=== PATIENT | male | born 2000 | race Hispanic/Latino ===

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

== ENCOUNTER 2020-08-03 21:15 | Emergency (ER) | payer BC, SELFPAY ==
--- OUTSIDE RECORDS SUMMARY | 2020-08-03 21:19 | XMS REPORT | Continuity of Care Document ---
:2000 Author Organization [facility] t Address [address] [place] [address] Dr. Hernandez [address] [place] [id number] Care Team Providers Name Role Phone Unavailable Unavailable Unavailable Problems This patient has no known problems. Allergies, Adverse Reactions, Alerts This patient has no known allergies or adverse reactions. Medications This patient has no known medications. Procedures This patient has no known procedures. Results This patient has no known results.
--- NOTE | 2020-08-03 23:38 | EDPHYS ---
Physician Documentation [facility] Name: Lg El Age: 20 yrs Sex: Male : 2000 Arrival Date: 08/03/2020 Time: 21:23 Bed 16 Private MD: ED Physician Varinder Cedeno HPI: 08/03 21:23 This 20 yrs old Male presents to ER via Wheelchair with complaints of Knee jmm Injury. 21:23 The patient presents with an injury, pain. Onset: The symptoms/episode began/occurred jmm acutely, just prior to arrival. Modifying factors: The symptoms are alleviated by remaining still, the symptoms are aggravated by movement, weight bearing. Associated signs and symptoms: Pertinent negatives fever, swelling, tingling, vomiting. The patient has experienced a previous episode. Patient states his knee gave out on him while playing soccer. Denies other injury. . Historical: - Allergies: 21:31 No Known Allergies; ca1 - Home Meds: 21:31 None [Active]; ca1 - PMHx: 21:31 None; ca1 - PSHx: 21:31 ACL surgery; ca1 - Immunization history:: Client reports having NOT received the Covid vaccine. Flu vaccine is not up to date. - Social history:: Smoking status: Patient denies any tobacco usage or history of. ROS: 21:23 Constitutional: Negative for fever, chills, and weight loss, Cardiovascular: Negative jmm for chest pain, palpitations, and edema, Respiratory: Negative for shortness of breath, cough, wheezing, and pleuritic chest pain. 21:23 MS/extremity: Positive for injury or acute deformity. 21:23 All other systems are negative. Exam: 21:23 Constitutional: This is a well developed, well nourished patient who is awake, alert, jmm and in no acute distress. Head/Face: atraumatic. Eyes: EOMI, no conjunctival erythema appreciated ENT: Moist Mucus Membranes Neck: Trachea midline, Supple Chest/axilla: Normal chest wall appearance and motion. Cardiovascular: Regular rate and rhythm. No edema appreciated Respiratory: Normal respirations, no respiratory distress appreciated Abdomen/GI: Non distended, soft Back: Normal ROM Skin: General appearance color normal 21:23 Musculoskeletal/extremity: FROM appreciated to the right knee, anterior knee is TTP, compartments are soft, NVI. 21:23 Skin: Appearance: Color: normal in color. 21:23 Neuro: Orientation: is normal, Mentation: is normal, Memory: is normal. 21:23 Psych: Behavior/mood is pleasant, cooperative. Vital Signs: 21:30 BP 135 / 82; Pulse 104; Resp 16 S; Temp 97.9(TE); Pulse Ox 99% on R/A; Weight 112.49 kg ca1 (R); Height 5 ft. 6 in. (167.64 cm) (R); Pain 7/10; 21:54 BP 148 / 80; Pulse 100; Resp 16; Pulse Ox 98% on R/A; zb 21:30 Body Mass Index 40.03 (112.49 kg, 167.64 cm) ca1 MDM: 22:07 Patient medically screened. [facility] 08/04 00:12 Data reviewed: vital signs, nurses notes. Counseling: I had a detailed discussion with karen the patient and/or guardian regarding: the historical points, exam findings, and any diagnostic results supporting the discharge/admit diagnosis, radiology results, the need for outpatient follow up, to return to the emergency department if symptoms worsen or persist or if there are any questions or concerns that arise at home. 08/03 22:02 Order name: XRAY Knee RIGHT 3 view rr5 08/03 23:37 Order name: Knee Immobilizer; Complete Time: 23:49 [facility] Administered Medications: No medications were administered Disposition: 06:38 Co-signature as Attending Physician, Varinder Cedeno MD. [email or web address] Disposition: 08/03/20 23:37 Discharged to Home. Impression: Internal derangement of knee. - Condition is Stable. - Discharge Instructions: Knee Pain. - Prescriptions for Ibuprofen 800 mg Oral Tablet - take 1 tablet by ORAL route every 8 hours As needed take with food; 30 tablet. - Medication Reconciliation Form, Thank You Letter, Antibiotic Education, Prescription Opioid Use, Work release form form. - Follow up: Edison Mehta MD; When: 2 - 3 days; Reason: Recheck today's complaints, Continuance of care, Re-evaluation by your physician. Signatures: Dispatcher [employer] EDMS Nikolas Solomon PA PA jmm Ballard, Brenda, RN RN Noemí Arora RN RN ca1 Varinder Cedeno MD MD 7 Corrections: (The following items were deleted from the chart) 00:01 08/03 23:37 08/03/2020 23:37 Discharged to Home. Impression: Internal derangement of bb knee. Condition is Stable. Forms are Medication Reconciliation Form, Thank You Letter, Antibiotic Education, Prescription Opioid Use. Follow up: Dr. Edison Mehta; When: 2 - 3 days; Reason: Recheck today's complaints, Continuance of care, Re-evaluation by your physician. karen
--- NOTE | 2020-08-03 23:38 | ER ---
Nurse's Notes [facility] Name: Lg El Age: 20 yrs Sex: Male : 2000 Arrival Date: 08/03/2020 Time: 21:23 Bed 16 Private MD: Diagnosis: Internal derangement of knee Presentation: 08/03 21:30 Chief complaint: Patient states: R knee pain 30 mins [employer]. Was running, stepped unto a ca1 hole and heard R knee pop. Previous injury to R knee reported. Coronavirus screen: Client denies travel out of the [place] in the last 14 days. At this time, the client does not indicate any symptoms associated with coronavirus-19. Ebola Screen: Patient negative for fever greater than or equal to 101.5 degrees Fahrenheit, and additional compatible Ebola Virus Disease symptoms Patient denies exposure to infectious person. Patient denies travel to an Ebola-affected area in the 21 days before illness onset. No symptoms or risks identified at this time. Initial Sepsis Screen: Does the patient meet any 2 criteria? No. Patient's initial sepsis screen is negative. Does the patient have a suspected source of infection? No. Patient's initial sepsis screen is negative. Risk Assessment: Do you want to hurt yourself or someone else? Patient reports no desire to harm self or others. Onset of symptoms was August 03, 2020. 21:30 Method Of Arrival: Wheelchair ca1 21:30 Acuity: ORTIZ 4 ca1 Historical: - Allergies: 21:31 No Known Allergies; ca1 - Home Meds: 21:31 None [Active]; ca1 - PMHx: 21:31 None; ca1 - PSHx: 21:31 ACL surgery; ca1 - Immunization history:: Client reports having NOT received the Covid vaccine. Flu vaccine is not up to date. - Social history:: Smoking status: Patient denies any tobacco usage or history of. Screenin:51 Abuse screen: Denies threats or abuse. Denies injuries from another. Nutritional zb screening: No deficits noted. Tuberculosis screening: No symptoms or risk factors identified. Fall Risk Fall in past 12 months (25 points). No secondary diagnosis (0 pts). No IV (0 pts). Ambulatory Aid- None/Bed Rest/Nurse Assist (0 pts). Gait- Normal/Bed Rest/Wheelchair (0 pts) Mental Status- Oriented to own ability (0 pts). Total Andino Fall Scale indicates Low Risk Score (25-44 pts). Fall prevention measures have been instituted. Side Rails Up X 2 Placed close to Nursing Station Frequent Obs/Assesments occuring Family Present and informed to notify staff if they need to leave bedside As available Patient and Family Educated on Fall Prevention Program and strategies. Assessment: 21:52 General: Appears in no apparent distress. uncomfortable, Behavior is calm, cooperative, zb appropriate for age. Pain: Complains of pain in right knee Pain does not radiate. Pain currently is 7 out of 10 on a pain scale. Quality of pain is described as aching, sharp, tender. Neuro: Level of Consciousness is awake, alert, obeys commands, Oriented to person, place, time, situation. Cardiovascular: Patient's skin is warm and dry. Respiratory: Airway is patent. Derm: Bruising that is green, on right knee. Musculoskeletal: Circulation, motion, and sensation intact. Range of motion: limited in right knee. Injury Description: Bruise sustained to right knee is yellow, was sustained 30-60 minutes ago. Vital Signs: 21:30 BP 135 / 82; Pulse 104; Resp 16 S; Temp 97.9(TE); Pulse Ox 99% on R/A; Weight 112.49 kg ca1 (R); Height 5 ft. 6 in. (167.64 cm) (R); Pain 7/10; 21:54 BP 148 / 80; Pulse 100; Resp 16; Pulse Ox 98% on R/A; zb 21:30 Body Mass Index 40.03 (112.49 kg, 167.64 cm) ca1 ED Course: 21:23 Patient arrived in ED. am4 21:23 Nikolas Solomon PA is PHCP. jmm 21:23 Varinder Cedeno MD is Attending Physician. jmm 21:31 Triage completed. ca1 21:31 Arm band placed on right wrist. ca1 21:39 Shantel Munoz, [place] is Primary Nurse. zb 22:56 XRAY Knee RIGHT 3 view In Process Unspecified. EDMS 23:37 Edison Mehta MD is Referral Physician. jmm 23:49 Patient has correct armband on for positive identification. Pulse ox on. NIBP on. rr5 23:49 No provider procedures requiring assistance completed. Patient did not have IV access rr5 during this emergency room visit. Administered Medications: No medications were administered Outcome: 23:37 Discharge ordered by . karen 23:50 Discharged to home via wheelchair. rr5 23:50 Condition: stable 23:50 Discharge instructions given to patient, family, Instructed on discharge instructions, follow up and referral plans. medication usage, Demonstrated understanding of instructions, follow-up care, medications, Prescriptions given X 1. 08/04 00:01 Patient left the ED. bb Signatures: Dispatcher [employer] EDMS Nikolas Solomon PA PA jmm Ballard, Brenda RN RN bb Ryan Malloy RN RN rr5 Noemí Lamas RN RN Shantel Puente RN RN Ally Silva am4
[2020-08-04 00:47] VITALS: TEMP 97.9
[2020-08-04 00:49] VITALS: BP 148/80; O2SAT 98
--- NOTE | 2020-08-04 10:55 | RAD REPORT ---
EXAM DESCRIPTION: RAD - Knee Right 3 View - 08/03/2020 10:56 pm CLINICAL HISTORY: Right knee pain status post injury FINDINGS: No fracture or dislocation is seen. Small joint effusion If patient has clinical symptoms to suggest an occult fracture, ligamentous or meniscal injury MRI wo uld be recommended
== END 2020-08-04 00:01 | disposition home or self-care (01) ==
LOC: ER 21:15
DX: M23.91 Unspecified internal derangement of right knee (principal); Y93.66 Activity, soccer
CPT/HCPCS: 99283

== ENCOUNTER 2022-01-22 13:12 | Emergency (ER) | payer OTHER ==
--- OUTSIDE RECORDS SUMMARY | 2022-01-22 13:19 | XMS REPORT | Continuity of Care Document ---
:2000 Author Organization [facility] t Address [address] [place] [address] Dr. Hernandez [address] [place] [id number] Care Team Providers Name Role Phone Unavailable Unavailable Unavailable Problems This patient has no known problems. Allergies, Adverse Reactions, Alerts This patient has no known allergies or adverse reactions. Medications This patient has no known medications. Procedures This patient has no known procedures. Results This patient has no known results.
[2022-01-22] MEDS ORDERED: METOCLOPRAMIDE 10 MG/2mL INJ ONE (14:19)
[2022-01-22] MEDS ORDERED: DIPHENHYDRAMINE 50 MG/ML VIAL ONE (14:19)
[2022-01-22] MEDS ORDERED: NA CHLORIDE 0.9% 1,000 ML ONE (14:20)
[2022-01-22] MEDS ORDERED: ACETAMINOPHEN 500 MG TAB ONE (14:20)
--- NOTE | 2022-01-22 14:22 | RAD REPORT ---
EXAM DESCRIPTION: CT - Head Brain Wo Cont - 01/22/2022 2:14 pm CLINICAL HISTORY: headache COMPARISON: No comparisons TECHNIQUE: Axial 5 mm thick images of the head were obtained without IV contrast. All CT scans are performed using dose optimization technique as appropriate and may include automated exposure control or mA/KV adjustment according to patient size. FINDINGS: No intracranial hemorrhage, mass, edema or shift of mid-line structures. No acute infarcti on changes seen. No abnormal extra-axial fluid collections. Ventricles are normal. Mastoid air cells and visualized portions of the paranasal sinuses are clear. No acute bony findings. IMPRESSION: Negative non-contrast CT head examination.
[2022-01-22 14:38] LABS: Urine Blood Negative (Negative); Urine Glucose Trace (Negative); Urine Protein 1+ (Negative); Urine Specific Gravity >=1.030 (1.005-1.030); Urine pH 5.5 (5.0-7.0)
[2022-01-22 14:42] LABS: Absolute Lymphocytes (CBC) 2.8 K/uL (0.7-4.9); Hematocrit 45.3 % (39.6-49.0); MCV 82.3 fL (80-100); MPV 8.4 fL (7.6-11.3); RBC Red Blood Cell Count 5.51 M/uL (4.33-5.43)
[2022-01-22 14:58] LABS: Albumin 4.1 g/dL (3.4-5.0); Magnesium 2.4 mg/dL (1.8-2.4); Potassium 3.6 mmol/L (3.5-5.1)
[2022-01-22 15:22] LABS: SARS-COV-2 RT PCR NEGATIVE (NEGATIVE)
--- NOTE | 2022-01-22 15:24 | EDPHYS ---
Physician Documentation [facility] Name: Lg El Age: 21 yrs Sex: Male : 2000 Arrival Date: 01/22/2022 Time: 13:18 Bed 9 Private MD: ED Physician Jimmy Acosta HPI: 01/22 14:05 This 21 yrs old Male presents to ER via Ambulatory with complaints of sb4 Headache, Back Pain, Neck Pain. 14:05 The patient complains of pain to the forehead. sb4 Historical: - Allergies: 13:53 No Known Allergies; vg1 - Home Meds: 13:53 None [Active]; vg1 - PMHx: 13:53 None; vg1 - PSHx: 13:53 None; vg1 - Immunization history:: Client reports having NOT received the Covid vaccine. - Social history:: Smoking status: Patient denies any tobacco usage or history of. ROS: 15:21 Constitutional: Positive for fever, Negative for poor PO intake, weight loss. sb4 15:21 Eyes: Positive for photophobia, Negative for acute changes, blurry vision. 15:21 ENT: 15:21 Neck: Positive for pain with movement, stiffness. 15:21 All other systems are negative. 15:32 Cardiovascular: Negative for chest pain, palpitations, and edema, Respiratory: Negative sb4 for shortness of breath, cough, wheezing, and pleuritic chest pain, Abdomen/GI: Negative for abdominal pain, nausea, vomiting, diarrhea, and constipation. Exam: 15:21 Constitutional: This is a well developed, well nourished patient who is awake, alert, sb4 and in no acute distress. Head/Face: Normocephalic, atraumatic. Eyes: Pupils equal round and reactive to light, extra-ocular motions intact. Periorbital areas with no swelling, redness, or edema. ENT: Mucous membranes moist. Chest/axilla: Normal chest wall appearance and motion. Nontender with no deformity. No lesions are appreciated. Cardiovascular: Regular rate and rhythm with a normal S1 and S2. Respiratory: Lungs have equal breath sounds bilaterally, clear to auscultation and percussion. No rales, rhonchi or wheezes noted. No increased work of breathing, no retractions or nasal flaring. Abdomen/GI: Soft, non-tender, no distension. Skin: Warm, dry with normal turgor. Normal color with no rashes, no lesions, and no evidence of cellulitis. Neuro: Awake and alert, GCS 15, oriented to person, place, time, and situation. Cranial nerves II-XII grossly intact. Motor strength 5/5 in all extremities. Sensory grossly intact. Cerebellar exam normal. Normal gait. Vital Signs: 13:50 BP 140 / 84; Pulse 86; Resp 16; Temp 99.8(O); Pulse Ox 100% ; Weight 116.12 kg; Height vg1 5 ft. 6 in. (167.64 cm); Pain 6/10; 14:38 BP 132 / 81; Pulse 81; Resp 16; Pulse Ox 100% on R/A; ld1 13:50 Body Mass Index 41.32 (116.12 kg, 167.64 cm) vg1 MDM: 13:55 Patient medically screened. sb4 15:21 Data reviewed: vital signs, nurses notes, lab test result(s), and as a result, I will sb4 discharge patient. 01/22 14:04 Order name: CBC with Diff; Complete Time: 14:44 sb4 01/22 14:04 Order name: CMP; Complete Time: 15:07 sb4 01/22 14:04 Order name: COVID-19/FLU A+B; Complete Time: 15:31 sb4 01/22 14:04 Order name: Strep; Complete Time: 14:54 sb4 01/22 14:04 Order name: Frio Screen Profile; Complete Time: 15:31 sb4 01/22 14:04 Order name: Magnesium; Complete Time: 15:07 sb4 01/22 14:04 Order name: CT Head Brain wo Cont; Complete Time: 14:38 sb4 01/22 14:04 Order name: Urine Dipstick-Ancillary (obtain specimen); Complete Time: 14:37 sb4 01/22 14:38 Order name: Urine Dipstick-Ancillary; Complete Time: 14:38 EDMS 01/22 14:52 Order name: Throat Culture EDMS Administered Medications: 14:37 Drug: NS 0.9% 1000 ml Route: IV; Rate: 1 bolus; Site: right antecubital; ld1 17:47 Follow up: Response: No adverse reaction; IV Intake: 1000ml ld1 17:48 Follow up: IV Status: Completed infusion ld1 14:37 Drug: Tylenol 1000 mg Route: PO; ld1 17:47 Follow up: Response: No adverse reaction ld1 14:37 Drug: Reglan (metoCLOPramide) 10 mg Route: IVP; Site: right antecubital; ld1 17:47 Follow up: Response: No adverse reaction ld1 14:37 Drug: Benadryl (diphenhydrAMINE) 12.5 mg Route: IVP; Site: right antecubital; ld1 17:47 Follow up: Response: No adverse reaction ld1 Disposition: 18:45 Co-signature as Attending Physician, Jimmy Acosta MD. rn Disposition Summary: 01/22/22 15:23 Discharge Ordered Location: Home sb4 Problem: new sb4 Symptoms: are resolved sb4 Condition: Stable sb4 Diagnosis - Headache sb4 Followup: sb4 - With: Private Physician - When: As needed - Reason: Recheck today's complaints, Continuance of care, Re-evaluation by your physician Discharge Instructions: - Discharge Summary Sheet sb4 - General Headache Without Cause sb4 - Form - Return To Work sb4 Forms: - Medication Reconciliation Form sb4 - Thank You Letter sb4 - Work release form ld1 - Antibiotic Education sb4 - Prescription Opioid Use sb4 Signatures: Dispatcher [employer] EDJimmy Maxwell MD MD rn Garcia, Victoria RN RN vg1 Naty Yoon RN RN ld1 Trixie Munoz PA-C PA-C sb4
--- NOTE | 2022-01-22 15:24 | ER ---
Nurse's Notes [facility] Name: Lg El Age: 21 yrs Sex: Male : 2000 Arrival Date: 01/22/2022 Time: 13:18 Bed 9 Private MD: Diagnosis: Headache Presentation: 01/22 13:50 Chief complaint: Patient states: Woke up Thursday morning with neck and back pain and vg1 headache. Went to [place] provider today and was tested for Covid and Flu-results Negative, was told to come to ED to be tested for Meningitis Pt was given 600 mg Ibuprofen PO; Denies blurred vision or dizziness. Coronavirus screen: Vaccine status: Patient reports being unvaccinated. Client denies travel out of the [place] in the last 14 days. Ebola Screen: Patient negative for fever greater than or equal to 101.5 degrees Fahrenheit, and additional compatible Ebola Virus Disease symptoms. Initial Sepsis Screen: Does the patient meet any 2 criteria? No. Patient's initial sepsis screen is negative. Does the patient have a suspected source of infection? No. Patient's initial sepsis screen is negative. Risk Assessment: Do you want to hurt yourself or someone else? Patient reports no desire to harm self or others. Onset of symptoms was January 19, 2022. 13:50 Method Of Arrival: Ambulatory vg1 13:50 Acuity: ORTIZ 3 vg1 Triage Assessment: 13:53 Headache History: The patient has had previous headaches and this one is more severe vg1 than previous episodes. General: Appears in no apparent distress. uncomfortable, Behavior is calm, cooperative. Pain: Complains of pain in head, neck, and back Pain currently is 6 out of 10 on a pain scale. Pain began 2-3 days ago. Also complains of no other associated symptoms. Neuro: Level of Consciousness is awake, alert, obeys commands, Oriented to person, place, time, situation, Reports headache Denies blurred vision dizziness, photophobia. Historical: - Allergies: 13:53 No Known Allergies; vg1 - Home Meds: 13:53 None [Active]; vg1 - PMHx: 13:53 None; vg1 - PSHx: 13:53 None; vg1 - Immunization history:: Client reports having NOT received the Covid vaccine. - Social history:: Smoking status: Patient denies any tobacco usage or history of. Screenin:38 Abuse screen: Denies threats or abuse. Denies injuries from another. Nutritional ld1 screening: No deficits noted. Tuberculosis screening: No symptoms or risk factors identified. Fall Risk None identified. Assessment: 14:38 Reassessment: See triage assessment. ld1 Vital Signs: 13:50 BP 140 / 84; Pulse 86; Resp 16; Temp 99.8(O); Pulse Ox 100% ; Weight 116.12 kg; Height vg1 5 ft. 6 in. (167.64 cm); Pain 6/10; 14:38 BP 132 / 81; Pulse 81; Resp 16; Pulse Ox 100% on R/A; ld1 13:50 Body Mass Index 41.32 (116.12 kg, 167.64 cm) vg1 ED Course: 13:18 Patient arrived in ED. rg4 13:25 Trixie Munoz PA-C is [facility]. sb4 13:25 Jimmy Acosta MD is Attending Physician. sb4 13:53 Triage completed. vg1 13:53 Arm band placed on. vg1 14:15 CT Head Brain wo Cont In Process Unspecified. EDMS 14:15 Naty Yoon, [place] is Primary Nurse. ld1 14:38 Patient has correct armband on for positive identification. Placed in gown. Bed in low ld1 position. Call light in reach. Side rails up X2. Pulse ox on. NIBP on. Door closed. Noise minimized. 14:38 Strep Sent. ld1 14:38 COVID-19/FLU A+B Sent. ld1 14:38 No provider procedures requiring assistance completed. Inserted saline lock: 20 gauge ld1 in right antecubital area, using aseptic technique. Blood collected. 15:25 IV discontinued, intact, bleeding controlled, No redness/swelling at site. ld1 Administered Medications: 14:37 Drug: NS 0.9% 1000 ml Route: IV; Rate: 1 bolus; Site: right antecubital; ld1 17:47 Follow up: Response: No adverse reaction; IV Intake: 1000ml ld1 17:48 Follow up: IV Status: Completed infusion ld1 14:37 Drug: Tylenol 1000 mg Route: PO; ld1 17:47 Follow up: Response: No adverse reaction ld1 14:37 Drug: Reglan (metoCLOPramide) 10 mg Route: IVP; Site: right antecubital; ld1 17:47 Follow up: Response: No adverse reaction ld1 14:37 Drug: Benadryl (diphenhydrAMINE) 12.5 mg Route: IVP; Site: right antecubital; ld1 17:47 Follow up: Response: No adverse reaction ld1 Medication: 14:38 VIS not applicable for this client. ld1 Intake: 17:47 IV: 1000ml; Total: 1000ml. ld1 Outcome: 15:23 Discharge ordered by . sb4 15:25 Discharged to home ambulatory. ld1 15:25 Condition: stable 15:25 Discharge instructions given to patient, family, Instructed on discharge instructions, follow up and referral plans. Demonstrated understanding of instructions, follow-up care. 16:20 Patient left the ED. ld1 Signatures: Dispatcher [employer] Miladis Sherwood rg4 Janelle Wall RN RN vg1 Naty Yoon RN RN ld1 Trixie Munoz PATaco PATaco sb4
[2022-01-22 20:35] VITALS: TEMP 99.8; O2SAT 100
[2022-01-22 20:36] VITALS: BP 132/81
== END 2022-01-22 16:20 | disposition home or self-care (01) ==
LOC: ER 13:12
DX: R51.9 Headache, unspecified (principal); Z20.822 Contact with and (suspected) exposure to COVID-19
CPT/HCPCS: 96361; 87070; 85025; 36415; 83735; 86308; 87081; 81003; 80053; 0240U; 70450; 96375; 96374; 99284; J2765; J1200; J7030